=== PATIENT | male | born 1985 | race African-American/Black ===

== ENCOUNTER 2021-02-21 11:22 | Emergency (ER) | payer OTHER ==
[~2021-02-21] VITALS: Ht 177.8 cm; Wt 77.1 kg
[2021-02-21 12:09] VITALS: BP 132/53
== END 2021-02-21 15:32 | disposition home or self-care (01) ==
LOC: ER 11:22
DX: S80.812A Abrasion, left lower leg, initial encounter (principal); F17.210 Nicotine dependence, cigarettes, uncomplicated; W54.8XXA Other contact with dog, initial encounter; Y93.89 Activity, other specified; Y92.89 Other specified places as the place of occurrence of the external cause; Y99.8 Other external cause status

== ENCOUNTER 2022-10-25 20:50 | Emergency (ER) | payer MEDICAID, OTHER ==
[~2022-10-25] VITALS: Ht 180.3 cm; Wt 73.6 kg
[2022-10-26] MEDS ORDERED: KETOROLAC TROMETH 60MG/2ML VIAL IM ONE
[2022-10-26] MEDS ORDERED: IBUP-1456 PO (00:07)
[2022-10-26 01:15] VITALS: BP 132/78; PULSE 79; RESP 18; TEMP 98; O2SAT 98
== END 2022-10-26 01:15 | disposition home or self-care (01) ==
LOC: ER 20:52
DX: S80.12XA Contusion of left lower leg, initial encounter (principal); Z79.1 Long term (current) use of non-steroidal anti-inflammatories (NSAID); W18.39XA Other fall on same level, initial encounter; Y93.39 Activity, other involving climbing, rappelling and jumping off; Y92.89 Other specified places as the place of occurrence of the external cause; Y99.8 Other external cause status
CPT/HCPCS: 73590; 96372; 99283; J1885

== ENCOUNTER 2024-09-23 21:29 | Emergency (ER) | payer OTHER ==
[~2024-09-23] VITALS: Ht 177.8 cm; Wt 83.9 kg
[~2024-09-23 21:29] MED LIST: IBUP-1456 PO
[2024-09-23] MEDS: TETANUS-DIPTH-ACEL PERTUSSIS 0.5ML SYR Tdap IM ONE (22:58)
[2024-09-24] MEDS ORDERED: IBUP-1455 PO (01:14)
[2024-09-24] MEDS ORDERED: AUG875T PO (01:14)
--- NOTE | 2024-09-24 01:15 | ED.PDOC ---
History of Present Illness(SKN HPI Comments This is a 39-year-old male who was brought to the ED via EMS due to a dog bite sustained approximately 1 hour prior to arrival. Patient states he was bit on the left knee by a street dog at that time. Patient states he has multiple puncture wounds. Patient's tetanus is not up-to-date. Patient denies any fever nausea or vomiting. Patient is able to ambulate. 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 Allergies: Coded Allergies: NO KNOWN ALLERGIES (Unverified , 07/26/13) Home Meds Active Scripts Ibuprofen (Ibuprofen) 800 Mg Tab, 1 TAB PO TID PRN, #30 TAB 0 Refills Prov:DIANA RODRÍGUEZ 10/26/22 Information Source: Patient, Emergency Med Personnel Mode of Arrival: EMS Severity: Mild Timing: Minutes Duration: Since onset Prehospital treatment: None Location: Other (Left knee) Mechanism: Dog Object: None Condition of Object: None Tetanus: >5 Years History of: None Associated Signs and Symptoms: None Past Medical History PAST MEDICAL HISTORY: Denies Surgical History: Denies all surgeries Family History Family History: Unknown Social History Smoker: Non-Smoker Alcohol: Denies ETOH Use Drugs: Denies Drug Use Lives In: Home Constitutional: denies: chills, diaphoresis, fatigue, fever, malaise, sweats, weakness, others Respiratory: denies: cough, hemoptysis, orthopnea, SOB at rest, shortness of breath, SOB with excertion, stridor, wheezing, others Cardiovascular: denies: chest pain, dizzy spells, diaphoresis, Dyspnea on exertion, edema, irregular heart beat, left arm pain, lightheadedness, palpitations, PND, syncope, others Gastrointestinal: denies: abdomen distended, abdominal pain, blood streaked bowels, constipated, diarrhea, dysphagia, difficulty swallowing, hematemesis, melena, nausea, poor appetite, poor fluid intake, rectal bleeding, rectal pain, vomiting, others Genitourinary: denies: burning, dysuria, flank pain, frequency, hematuria, incontinence, penile discharge, penile sore, pain, testicle pain, testicle swelling, urgency, others Neurological: denies: dizziness, fainting, headache, left sided numbness, left sided weakness, numbness, paresthesia, pre-existing deficit, right sided numbness, right sided weakness, seizure, speech problems, tingling, tremors, weakness, others Musculoskeletal: denies: back pain, gout, joint pain, joint swelling, muscle pain, muscle stiffness, neck pain, others Integumetry: reports: others (Dog bite to left knee); denies: bruises, change in color, change in hair/nails, dryness, laceration, lesions, lumps, rash, wounds Allergic/Immunocompromised: denies: Difficulty Healing, Frequent Infections, Hi ves, Itching, others Hematologic/Lymphatic: denies: anemia, blood clots, easy bleeding, easy bruising, swollen glands, others Endocrine: denies: excessive hunger, excessive sweating, excessive thirst, excessive urination, flushing, intolerance to cold, intolerance to heat, unexplained weight gain, unexplained weight loss, others Psychiatric: denies: anxiety, bipolar disorder, depression, hopeless, panic disorder, schizophrenia, sleepless, suicidal, others Physical Exam General Appearance: Mild Distress (Moderate distress due to dog bite concerns), Normal HEENT: Normal ENT Inspection, Pharynx Normal, TMs Normal Neck: Full Range of Motion, Non-Tender, Normal, Normal Inspection Respiratory: Chest Non-Tender, Lungs Clear, No Accessory Muscle Use, No Respiratory Distress, Normal Breath Sounds Cardiovascular: No Edema, No JVD, No Murmur, No Gallop, Normal Peripheral Pulses, Regular Rate/Rhythm Breast Exam: Deferred Gastrointestinal: No Organomegaly, Non Tender, No Pulsatile Mass, Normal Bowel Sounds, Soft Genitalia: Deferred Pelvic: Deferred Rectal: Deferred Extremities: Other (Patient displays three puncture wounds to the anterior aspect of his left knee. No active bleed. No crepitus. No signs of bony concern.) Neurologic: Alert, No Motor Deficits, Normal Affect, Normal Mood, No Sensory Deficits Cerebellar Function: Normal Reflexes: Normal Skin: Dry, Normal Color, Warm, Wounds (See extremities for description of puncture wounds) Lymphatic: No Adenopathy Was a procedure done? Was a procedure done?: No Differential Diagnosis (INTG) Differential Diagnosis: Puncture Wound, Other (Dog bite) X-Ray, Labs, Meds, VS Vital Signs Date Time Temp Pulse Resp B/P (MAP) Pulse Ox O2 Delivery O2 Flow Rate FiO2 09/23/24 21:34 98.3 87 16 117/80 99 98.3 Current Medications Medications (Trade) Dose Ordered Sig/Narciso Route Start Time Stop Time Status Last Admin Diphtheria/ Tetanus/Acell Pertussis (Boostrix T-Dap) 0.5 ml ONCE ONCE IM 09/23/24 22:30 09/23/24 22:31 DC 09/23/24 22:58 X-Ray, Labs, Meds, VS Comment Discussed with the wound concerns with the patient. Advise utilizing antibiotics as directed until completion as well as pain medication as needed. Time of 1ST Reevaluation: 01:13 Reevaluation 1ST: Improved Consultation: PCP Patient Education/Counseling: Diagnosis, Treatment Family Education/Counseling: Diagnosis, Treatment SEPSIS Sepsis Screen Date sepsis recognized/suspect: Sep 23, 2024 Time Sepsis recognized/suspect: 2136 Recent Procedure: No On Antibiotic Therapy: No Respiratory Rate >20: No Heart Rate >90: No Temp<36 C (96.8 F) or >38.3 C: No SBP <90 or MAP <65 mmHG: No New Acute Mental Status Change: No Is the patient on CPAP, BIPAP,: No Vital Signs Date Time Temp Pulse Resp B/P (MAP) Pulse Ox O2 Delivery O2 Flow Rate FiO2 09/23/24 21:34 98.3 87 16 117/80 99 98.3 Medications Medications Dose Ordered Sig/Narciso Route Start Time Stop Time Status Last Admin Dose Admin Diphtheria/ Tetanus/Acell Pertussis 0.5 ml ONCE ONCE IM 09/23/24 22:30 09/23/24 22:31 DC 09/23/24 22:58 Departure 1 Departure Time of Disposition: :13 Impression: Primary Impression: Dog bite Disposition: 01 HOME / SELF CARE / HOMELESS Condition: Stable Additional Instructions: Advise utilizing antibiotics as directed until completion as well as pain medi cation as needed. e-Prescriptions Ibuprofen Micronized (Ibuprofen) 800 Mg Tab 800 MG PO Q8HP PRN, #20 TAB Prov: GORDON ARNOLD PAC 09/24/24 Amoxicillin & Pot Clavulanate (AUGMENTIN TABLET) 875 Mg Tb 875 MG PO BID for 5 Days, #10 TAB Prov: GORDON ARNOLD PAC 09/24/24 Discharged With: Self, Friend Critical Care Note Critical Care Time?: No Stability Stability form required: No Heart Score Heart Score: Heart Score Response (Comments) Value History N/A 0 EKG N/A 0 Age N/A 0 Risk Factors N/A 0 Troponin N/A 0 Total 0 GORDON ARNOLD [facility] Sep 24, 2024 01:15
[2024-09-24 02:26] VITALS: BP 128/72; PULSE 75; RESP 17; TEMP 97.6; O2SAT 97
== END 2024-09-24 02:29 | disposition home or self-care (01) ==
LOC: EDBD 21:29 → ER 21:29
DX: S81.052A Open bite, left knee, initial encounter (principal); W54.0XXA Bitten by dog, initial encounter; Y93.89 Activity, other specified; Y92.89 Other specified places as the place of occurrence of the external cause; Y99.8 Other external cause status
CPT/HCPCS: 90471; 90715